=== PATIENT | female | born 1985 | race Caucasian/White ===

== ENCOUNTER 2019-04-23 23:12 | Emergency (ER) | payer MEDICAID ==
[~2019-04-23] VITALS: Ht 157.5 cm; Wt 85.3 kg
[2019-04-24] MEDS ORDERED: SODIUM CHLORIDE 0.9% 1,000 ML IV ONE (01:33)
[2019-04-24] MEDS ORDERED: ACETAMINOPHEN 325MG TABLET PO PRN (01:45)
[2019-04-24 01:49] LABS: CLARITY URINE TURBID (CLEAR); COLOR URINE YELLOW (YELLOW); KETONES URINE NEGATIVE (NEGATIVE); LEUKOCYTE ESTERASE URINE NEGATIVE (NEGATIVE); NITRITE URINE NEGATIVE (NEGATIVE); OCCULT BLOOD URINE NEGATIVE (NEGATIVE); PH URINE 8.5 (4.5-8.0); PROTEIN URINE NEGATIVE (NEGATIVE); SPECIFIC GRAVITY URINE 1.023 (1.005-1.030)
[2019-04-24 01:55] LABS: CHLORIDE 109 mEq/L (98-107)
[2019-04-24 02:05] LABS: BASOPHILS % 0.4 % (0.0-2.0); EOSINOPHILS % 2.4 % (0.0-5.0); HEMATOCRIT. 33.5 % (36.0-48.0); HEMOGLOBIN. 11.6 g/dL (12.0-16.0); LYMPHOCYTES % 26.1 % (20.0-50.0); MEAN CORPUSCULAR HEMOGLOBIN 32.2 pg (28.0-32.0); MEAN CORPUSCULAR VOLUME 92.7 fL (81.0-99.0); MONOCYTES % 6.3 % (2.0-8.0); NEUTROPHILS % 64.8 % (40.0-76.0); PLATELET 252 x1000/uL (130-400); RED BLOOD CELL COUNT 3.61 mill/uL (4.2-5.4); RED CELL DISTRIBUTION WIDTH 13.5 % (11.6-14.6)
[2019-04-24 02:18] LABS: B-HCG QUANTITATIVE 40332 mIU/mL (<3)
[2019-04-24 05:12] VITALS: BP 105/61
== END 2019-04-24 05:14 | disposition home or self-care (01) ==
LOC: ER 23:12
DX: O20.0 Threatened abortion (principal); Z3A.13 13 weeks gestation of pregnancy
CPT/HCPCS: 36415; 76830; 76856; 80048; 81003; 84702; 85025; 99284; J7030

== ENCOUNTER 2022-10-06 16:13 | Emergency (ER) | payer OTHER ==
[~2022-10-06] VITALS: Ht 167.6 cm; Wt 91.0 kg
[2022-10-06 16:57] VITALS: BP 160/117
[2022-10-06 17:21] LABS: BASOPHILS % 0.8 % (0.0-2.0); EOSINOPHILS % 1.5 % (0.0-5.0); HEMOGLOBIN. 12.9 g/dL (12.0-16.0); LYMPHOCYTES % 17.3 % (20.0-50.0); MEAN CORPUSCULAR HEMOGLOBIN 31.2 pg (28.0-32.0); MEAN CORPUSCULAR VOLUME 91.8 fL (81.0-99.0); MEAN PLATELET VOLUME 9.1 fl (7.4-10.4); MONOCYTES % 5.5 % (2.0-8.0); NEUTROPHILS % 74.9 % (40.0-76.0); PLATELET 298 x1000/uL (130-400); RED BLOOD CELL COUNT 4.13 mill/uL (4.2-5.4); RED CELL DISTRIBUTION WIDTH 13.1 % (11.6-14.6)
[2022-10-06 17:33] LABS: CHLORIDE 107 mEq/L (98-107)
[2022-10-06 17:34] LABS: HCG SCREEN NEGATIVE
[2022-10-06 19:28] LABS: CLARITY URINE CLEAR (CLEAR); COLOR URINE YELLOW (YELLOW); KETONES URINE NEGATIVE (NEGATIVE); LEUKOCYTE ESTERASE URINE TRACE (NEGATIVE); NITRITE URINE NEGATIVE (NEGATIVE); OCCULT BLOOD URINE NEGATIVE (NEGATIVE); PROTEIN URINE NEGATIVE (NEGATIVE); SPECIFIC GRAVITY URINE 1.024 (1.005-1.030)
[2022-10-06] MEDS ORDERED: CEPH500T MT (20:34)
== END 2022-10-06 20:45 | disposition home or self-care (01) ==
LOC: ER 16:13
DX: N39.0 Urinary tract infection, site not specified (principal); Z98.890 Other specified postprocedural states
CPT/HCPCS: 36415; 76705; 80053; 81003; 83690; 84703; 85025; 99284; Z7610

== ENCOUNTER 2024-09-25 08:58 | Emergency (ER) | payer MEDICAID, OTHER ==
[~2024-09-25] VITALS: Ht 149.9 cm; Wt 100.0 kg
[~2024-09-25 08:58] MED LIST: CEPH500T MT
[2024-09-25 09:30] VITALS: TEMP 37; O2SAT 100
[2024-09-25 10:52] LABS: CHLORIDE 105 mEq/L (98-107); POTASSIUM 3.4 mEq/L (3.5-5.1); SODIUM 137 mEq/L (136-145)
[2024-09-25 10:54] LABS: CALCIUM 9.1 mg/dL (8.7-10.4); CARBON DIOXIDE 24 mEq/L (21-32)
[2024-09-25 10:58] LABS: CREATININE 0.5 mg/dL (0.6-1.0)
[2024-09-25 10:59] LABS: GLUCOSE 85 mg/dL (70-105); UREA NITROGEN BLOOD 5 mg/dL (9-23)
[2024-09-25 11:23] LABS: BASOPHILS % 0.3 % (0.0-2.0); EOSINOPHILS % 2.2 % (0.0-5.0); HEMOGLOBIN. 12.1 g/dL (12.0-16.0); LYMPHOCYTES % 23.8 % (20.0-50.0); MEAN CORPUSCULAR HEMOGLOBIN 30.7 pg (28.0-32.0); MEAN CORPUSCULAR HGB CONC 33.4 g/dL (31.0-37.0); MEAN CORPUSCULAR VOLUME 91.9 fL (81.0-99.0); MEAN PLATELET VOLUME 9.2 fl (7.4-10.4); MONOCYTES % 4.5 % (2.0-8.0); NEUTROPHILS % 69.2 % (40.0-76.0); PLATELET 256 x1000/uL (130-400); RED BLOOD CELL COUNT 3.92 mill/uL (4.2-5.4); RED CELL DISTRIBUTION WIDTH 14.4 % (11.6-14.6); WHITE BLOOD COUNT 9.7 x1000/uL (4.5-11.0)
[2024-09-25 11:54] LABS: HCG SCREEN POSITIVE
[2024-09-25 12:43] LABS: CLARITY URINE TURBID (CLEAR); COLOR URINE RED (YELLOW); GLUCOSE URINE NEGATIVE (NEGATIVE); KETONES URINE 2+ (NEGATIVE); LEUKOCYTE ESTERASE URINE 1+ (NEGATIVE); NITRITE URINE POSITIVE (NEGATIVE); OCCULT BLOOD URINE 3+ (NEGATIVE); PROTEIN URINE 2+ (NEGATIVE); SPECIFIC GRAVITY URINE 1.015 (1.005-1.030); UROBILINOGEN URINE 0.2 E.U./dL (0.2-1.0)
[2024-09-25 13:15] LABS: BACTERIA URINE FEW; RBC URINE TNTC /hpf (0-2); SQUAMOUS EPITHELIAL CELL URINE NONE SEEN /lpf (RARE/1+); YEAST URINE NONE SEEN
[2024-09-25] MEDS ORDERED: CEFP200T13 MT (13:46)
[2024-09-25 14:01] VITALS: BP 144/70; PULSE 79; RESP 16; O2SAT 100
[2024-09-25] MEDS: LIDOCAINE HCL 1% 20ML VIAL INFIL ONE (14:29)
[2024-09-25] MEDS: POTASSIUM CHLORIDE 10MEQ TABLET SR PO ONE (14:29)
[2024-09-25] MEDS: CEFTRIAXONE SODIUM 1G VIAL IM ONE (14:29)
== END 2024-09-25 14:40 | disposition home or self-care (01) ==
LOC: ER 08:58
DX: O20.0 Threatened abortion (principal); O23.41 Unspecified infection of urinary tract in pregnancy, first trimester; O26.891 Other specified pregnancy related conditions, first trimester; O99.111 Other diseases of the blood and blood-forming organs and certain disorders involving the immune mechanism complicating pregnancy, first trimester; Z3A.12 12 weeks gestation of pregnancy; Z98.890 Other specified postprocedural states
CPT/HCPCS: 80048; 81003; 84703; 84702; 85025; 86850; 86900; 86901; 36415; 76801; 76817; 96372; 99285; J0696; J3490; Z7610 ×2

== ENCOUNTER 2024-09-27 09:08 | Emergency (ER) | payer OTHER ==
[~2024-09-27] VITALS: Ht 149.9 cm; Wt 99.8 kg
[~2024-09-27 09:08] MED LIST changes: +CEFP200T13 MT
[2024-09-27 09:14] VITALS: O2SAT 100
[2024-09-27 09:19] VITALS: BP 145/87; PULSE 85; RESP 16; TEMP 36.9; O2SAT 100
[2024-09-27 10:23] LABS: HCG SCREEN POSITIVE
== END 2024-09-27 11:57 | disposition home or self-care (01) ==
LOC: ER 09:16
DX: O20.0 Threatened abortion (principal); I10 Essential (primary) hypertension; Z98.890 Other specified postprocedural states
CPT/HCPCS: 36415; 76801; 84702; 84703; 99284

== ENCOUNTER 2024-10-17 11:03 | Emergency (ER) | payer MEDICAID, OTHER ==
[~2024-10-17] VITALS: Ht 149.9 cm; Wt 100.0 kg
[2024-10-17 11:06] VITALS: O2SAT 98
[2024-10-17 11:14] VITALS: BP 146/83; PULSE 100; RESP 16; TEMP 36.7; O2SAT 100
[2024-10-17 11:31] LABS: BASOPHILS % 0.7 % (0.0-2.0); EOSINOPHILS % 1.8 % (0.0-5.0); HEMATOCRIT. 34.4 % (36.0-48.0); HEMOGLOBIN. 11.6 g/dL (12.0-16.0); LYMPHOCYTES % 21.8 % (20.0-50.0); MEAN CORPUSCULAR HEMOGLOBIN 30.5 pg (28.0-32.0); MEAN CORPUSCULAR HGB CONC 33.6 g/dL (31.0-37.0); MEAN CORPUSCULAR VOLUME 90.8 fL (81.0-99.0); MEAN PLATELET VOLUME 8.5 fl (7.4-10.4); MONOCYTES % 5.9 % (2.0-8.0); NEUTROPHILS % 69.8 % (40.0-76.0); PLATELET 256 x1000/uL (130-400); RED BLOOD CELL COUNT 3.79 mill/uL (4.2-5.4); RED CELL DISTRIBUTION WIDTH 14.2 % (11.6-14.6); WHITE BLOOD COUNT 12.6 x1000/uL (4.5-11.0)
[2024-10-17 11:31] LABS: CLARITY URINE TURBID (CLEAR); COLOR URINE YELLOW (YELLOW); GLUCOSE URINE NEGATIVE (NEGATIVE); KETONES URINE NEGATIVE (NEGATIVE); LEUKOCYTE ESTERASE URINE TRACE (NEGATIVE); NITRITE URINE NEGATIVE (NEGATIVE); OCCULT BLOOD URINE 3+ (NEGATIVE); PH URINE 8.5 (4.5-8.0); PROTEIN URINE TRACE (NEGATIVE); SPECIFIC GRAVITY URINE 1.017 (1.005-1.030); UROBILINOGEN URINE 0.2 E.U./dL (0.2-1.0)
[2024-10-17 11:43] LABS: CHLORIDE 106 mEq/L (98-107); SODIUM 138 mEq/L (136-145)
[2024-10-17 11:44] LABS: CALCIUM 9.4 mg/dL (8.7-10.4); CARBON DIOXIDE 25 mEq/L (21-32)
[2024-10-17 11:49] LABS: CREATININE 0.5 mg/dL (0.6-1.0); GLUCOSE 112 mg/dL (70-105); UREA NITROGEN BLOOD 7 mg/dL (9-23)
[2024-10-17 12:16] LABS: BACTERIA URINE 2+; RBC URINE 15-25 /hpf (0-2); SQUAMOUS EPITHELIAL CELL URINE 2+ /lpf (RARE/1+); WBC URINE 0-2 /hpf (0-2); YEAST URINE NONE SEEN
[2024-10-17 12:25] LABS: B-HCG QUANTITATIVE 32302 mIU/mL (<3)
[2024-10-17] MEDS ORDERED: CEPH500C2 MT (14:13)
== END 2024-10-17 14:23 | disposition home or self-care (01) ==
LOC: ER 11:03
DX: O44.02 Complete placenta previa NOS or without hemorrhage, second trimester (principal); I10 Essential (primary) hypertension; R82.71 Bacteriuria; Z98.890 Other specified postprocedural states; Z3A.15 15 weeks gestation of pregnancy
CPT/HCPCS: 36415; 76801; 76805; 80048; 81003; 81025; 84702; 85025; 99284